=== PATIENT | male | born 1970 | race Caucasian/White ===

== ENCOUNTER 2018-02-24 21:37 | Inpatient (IN) | payer OTHER ==
[~2018-02-24] VITALS: Ht 182.9 cm; Wt 78.9 kg
[~2018-02-24 21:37] MED LIST: TYLENOL EXTRA500 MG PO; VICODIN 5-3001 EACH PO
[2018-02-25 12:35] LABS: BASOPHIL (%) 0.5 % (0-1); EOSINOPHIL (%) 6.8 % (0-5); EOSINOPHIL COUNT 0.4 K/uL (0-0.3); HEMATOCRIT 46.2 % (38.0-50.0); HEMOGLOBIN 15.1 G/DL (12.5-16.6); IMMATURE GRANULOCYTE (%) 0.2 % (0.0-0.7); LYMPHOCYTE (%) 18.3 % (15-42); LYMPHOCYTE COUNT 1.1 K/uL (1.0-2.8); MCH 28.7 PG (29.0-34.0); MCHC 32.7 G/DL (30.0-36.0); MCV 87.8 FL (86-99); MONOCYTE COUNT 0.3 K/uL (0-0.8); NEUTROPHIL (%) 69.2 % (45-76); NEUTROPHIL COUNT 4.2 K/uL (1.8-6.4); PLATELET COUNT 281 K/uL (156-360); RBC DIS.WIDTH-SD 42.2 % (39-53); RED BLOOD COUNT 5.26 M/uL (4.00-5.50); WHITE BLOOD COUNT 6.1 K/uL (4.1-10.2)
[2018-02-25 12:55] LABS: INTER. NORMALIZED RATIO 1.1
[2018-02-25 12:58] LABS: PTT 32.1 SEC (25-37)
[2018-02-25 13:00] VITALS: BP 152/93
[2018-02-25 13:21] LABS: ALBUMIN 4.6 G/DL (3.2-4.8); ALKALINE PHOSPHATASE 106 IU/L (3-129); ALT (GPT) 59 IU/L (3-49); AST (GOT) 32 IU/L (2-34); CHLORIDE 103 MEQ/L (99-109); CREATININE 0.9 MG/DL (0.6-1.3); GFR ESTIMATE (CALCULATED) > 59 mL/min/ (58.99-99999); GLUCOSE 86 mg/dL (70-99); POTASSIUM 3.6 MEQ/L (3.7-5.4); SODIUM 139 MEQ/L (136-147); TOTAL BILIRUBIN 0.5 MG/DL (0.0-1.0); TOTAL PROTEIN 7.9 G/DL (6.4-8.3); UREA NITROGEN (BUN) 17 mg/dL (9-23)
[2018-02-25 18:44] VITALS: BP 138/82
[2018-02-25 20:03] VITALS: BP 149/85
[2018-02-25 23:44] VITALS: BP 129/76
[2018-02-26 04:17] VITALS: BP 143/82
[2018-02-26 06:48] LABS: HEMATOCRIT 41.8 % (38.0-50.0); HEMOGLOBIN 14.1 G/DL (12.5-16.6); MCH 29.5 PG (29.0-34.0); MCHC 33.7 G/DL (30.0-36.0); MCV 87.4 FL (86-99); PLATELET COUNT 276 K/uL (156-360); RBC DIS.WIDTH-CV 13.1 % (11.8-14.6); RBC DIS.WIDTH-SD 41.7 % (39-53); RED BLOOD COUNT 4.78 M/uL (4.00-5.50); WHITE BLOOD COUNT 8.5 K/uL (4.1-10.2)
[2018-02-26 07:11] LABS: CHLORIDE 105 MEQ/L (99-109); CREATININE 0.8 MG/DL (0.6-1.3); GFR ESTIMATE (CALCULATED) > 59 mL/min/ (58.99-99999); SODIUM 140 MEQ/L (136-147); UREA NITROGEN (BUN) 12 mg/dL (9-23)
[2018-02-26 07:14] LABS: GLUCOSE 117 mg/dL (70-99); POTASSIUM 4.4 MEQ/L (3.7-5.4)
[2018-02-26 08:44] VITALS: BP 130/81
[2018-02-26 15:47] VITALS: BP 128/72
[2018-02-26] MEDS ORDERED: HYDROCODON-ACE1 EAC7 PO (20:04)
[2018-02-26] MEDS ORDERED: DOCUSATE SODIU100 MG PO (20:04)
[2018-02-26] MEDS ORDERED: MOTRIN600 MG PO (20:04)
[2018-02-26 23:15] VITALS: BP 132/70
[2018-02-27 07:51] VITALS: BP 136/69
[2018-02-27 17:21] VITALS: BP 132/74
[2018-02-28 01:05] VITALS: BP 120/83
[2018-02-28 05:33] LABS: HEMOGLOBIN 12.6 G/DL (12.5-16.6); MCH 29.4 PG (29.0-34.0); MCHC 33.2 G/DL (30.0-36.0); MCV 88.8 FL (86-99); PLATELET COUNT 229 K/uL (156-360); RBC DIS.WIDTH-CV 13.1 % (11.8-14.6); RBC DIS.WIDTH-SD 42.7 % (39-53); RED BLOOD COUNT 4.28 M/uL (4.00-5.50); WHITE BLOOD COUNT 5.5 K/uL (4.1-10.2)
[2018-02-28 08:30] VITALS: BP 126/64
== END 2018-02-28 11:32 | disposition home or self-care (01) | DRG 200 ==
LOC: ENRESERV 21:37 → 2SOUTH 02-25 11:30 → ENRESERV 02-25 16:06 → 3EAST 02-25 17:29
PROVIDERS: Surgery; Thoracic Surgery (Cardiothoracic Vascular Surgery)
DX: S27.2XXA Traumatic hemopneumothorax, initial encounter (principal); S22.42XA Multiple fractures of ribs, left side, initial encounter for closed fracture; Y93.23 Activity, snow (alpine) (downhill) skiing, snowboarding, sledding, tobogganing and snow tubing; V00.321A Fall from snow-skis, initial encounter; Y92.39 Other specified sports and athletic area as the place of occurrence of the external cause; Z82.49 Family history of ischemic heart disease and other diseases of the circulatory system
CPT/HCPCS: 71045; 80048; 80053; 85025; 85027; 85610; 85730; 94640; 94640 76; 99202; J0690; J1100; J1170; J1644; J1885; J2250; J2405; J2710; J7120; J7643; S0020